=== PATIENT | female | born 1985 | race Caucasian/White ===

== ENCOUNTER 2016-09-16 17:28 | Emergency (ER) | payer OTHER ==
[2016-09-16 18:21] LABS: BASOPHIL 0.4 % (0-2); EOSINOPHIL 1.2 % (0-5); HCT 44.5 % (37.0-47.0); HGB 15.5 g/dl (12.5-16.0); LYMPHOCYTE 20.5 % (15-48); MCH 31.5 pg (25.0-31.0); MCHC 34.8 g/dL (32.0-36.0); MCV 90.4 fL (78.0-100.0); MONOCYTE 8.4 % (0-12); MPV 11.8 fL (6.0-9.5); NEUTROPHIL 69.5 % (41-80); PLT 212 K/uL (150-400); RBC 4.92 M/uL (4.20-5.40); RDW 12.6 % (11.5-14.0); WBC 8.1 K/uL (4.0-10.5)
[2016-09-16 18:38] LABS: CREATININE 0.7 mg/dL (0.5-1.0); POTASSIUM 4.1 mmol/L (3.5-5.1)
== END 2016-09-16 20:14 | disposition home or self-care (01) ==
LOC: FER 17:28
PROVIDERS: Emergency Medicine
DX: F41.1 Generalized anxiety disorder (principal); E06.3 Autoimmune thyroiditis; Z88.0 Allergy status to penicillin; Z79.899 Other long term (current) drug therapy
CPT/HCPCS: 36415; 80048; 84443; 85025; 93005

== ENCOUNTER 2020-07-29 14:52 | Inpatient (IN) | payer OTHER ==
[~2020-07-29 14:52] MED LIST: ONDANSETRON ODT4 MG PO
[2020-07-29 15:54] LABS: BASOPHIL 0.3 % (0-2); EOSINOPHIL 3.9 % (0-5); HCT 45.1 % (37.0-47.0); HGB 14.8 g/dl (12.5-16.0); LYMPHOCYTE 6.3 % (15-48); MCH 30.7 pg (25.0-31.0); MCHC 32.8 g/dL (32.0-36.0); MCV 93.6 fL (78.0-100.0); MONOCYTE 4.8 % (0-12); MPV 11.7 fL (6.0-9.5); NEUTROPHIL 84.3 % (41-80); NRBC 0; PLT 234 K/uL (150-400); RBC 4.82 M/uL (4.20-5.40); RDW 12.4 % (11.5-14.0); WBC 20.6 K/uL (4.0-10.5)
[2020-07-29 15:56] LABS: BILIRUBIN NEGATIVE (NEGATIVE); BLOOD NEGATIVE Ery/uL (NEGATIVE); CLARITY HAZY (CLEAR); COLOR YELLOW (YELLOW); GLUCOSE (U) NORMAL (NORMAL); LEUKOCYTES 2+ Leu/uL (NEGATIVE); NITRITE NEGATIVE (NEGATIVE); PROTEIN NEGATIVE (NEGATIVE); UROBILINOGEN 0.2 mg/dL (0.2-1.0); pH 5.5 (5.0-9.0)
[2020-07-29 16:08] LABS: ALBUMIN 3.7 g/dL (3.4-5.0); ALKALINE PHOSHATASE 87 U/L (46-116); ALT 28 U/L (14-59); AST 26 U/L (15-37); BILIRUBIN - TOTAL 0.5 mg/dL (0.2-1.0); BUN 11 mg/dL (7-18); BUN/CREAT RATIO (CALC) 21.6 RATIO; CHLORIDE 102 mmol/L (98-107); CO2 (BICARBONATE) 26 mmol/L (21-32); CREATININE 0.51 mg/dL (0.51-0.95); GLOBULIN (CALCULATION) 3.5 g/dL; GLUCOSE 110 mg/dL (74-106); LIPASE >2250 U/L (73-393); POTASSIUM 3.8 mmol/L (3.5-5.1); TOTAL PROTEIN 7.2 g/dL (6.4-8.2)
[2020-07-29 16:09] LABS: BACTERIA TRACE; SQUAMOUS EPITHELIAL CELLS 20-50
[2020-07-29 16:10] LABS: MUCOUS MODERATE
[2020-07-29 17:48] LABS: LACTIC ACID 0.7 mmol/L (0.4-1.9)
[2020-07-29 18:24] LABS: CHOLESTEROL 144 mg/dL (<200); HDL 40 mg/dL (40-60); LDL - DIRECT 96 mg/dL (<100); TRIGLYCERIDES 35 mg/dL (<150)
[2020-07-29] MEDS ORDERED: ARMOUR THYROID60 MG PO (18:29)
[2020-07-29] MEDS ORDERED: ATIVAN1 MG PO (18:29)
[2020-07-30 06:18] LABS: HCT 38.2 % (37.0-47.0); HGB 12.6 g/dl (12.5-16.0); MCH 30.6 pg (25.0-31.0); MCV 92.7 fL (78.0-100.0); MPV 12.1 fL (6.0-9.5); RBC 4.12 M/uL (4.20-5.40); RDW 12.6 % (11.5-14.0); WBC 10.8 K/uL (4.0-10.5)
[2020-07-30 06:27] LABS: ALBUMIN 2.7 g/dL (3.4-5.0); BILIRUBIN - DIRECT 0.1 mg/dL (0.00-0.20); BILIRUBIN - TOTAL 0.6 mg/dL (0.2-1.0); BUN/CREAT RATIO (CALC) 13.2 RATIO; CREATININE 0.53 mg/dL (0.51-0.95); GLOBULIN (CALCULATION) 2.7 g/dL; POTASSIUM 3.6 mmol/L (3.5-5.1); TOTAL PROTEIN 5.4 g/dL (6.4-8.2)
--- NOTE | 2020-07-30 10:37 | NUR ---
SPOKE WITH PATIENT, SHE LIVES WITH HER DAD, IS INDEPENDENT WITH ALL ADLS, INDEPENDENT WITH AMBULATION, SHE DOES NOT HAVE HH. PATIENT STATED THAT SHE DOES NOT HAVE POA OR LIVING WILL.
[2020-07-30] MEDS ORDERED: LEVAQUIN500 MG PO (15:15)
[2020-07-30] MEDS ORDERED: METRONIDAZOLE500 MG PO (15:15)
[2020-07-30] MEDS ORDERED: PROTONIX 40MG T40 MG PO (15:15)
[2020-07-30] MEDS ORDERED: CARAFATE1 GM PO (15:15)
[2020-09-08] MEDS ORDERED: VITAMIN D3100 GM PO (13:41)
[2020-09-08] MEDS ORDERED: VITAMIN C PO (13:41)
[2020-09-08] MEDS ORDERED: LIVER REFRESH PO (13:42)
[2020-09-08] MEDS ORDERED: [UNRECOGNIZED DRUG - OTHER] PO (13:42)
== END 2020-07-30 16:10 | disposition home or self-care (01) | DRG 439 ==
LOC: FER 14:52 → FMS 17:06
PROVIDERS: Emergency Medicine; ADMIT Hospitalist
DX: K85.90 Acute pancreatitis without necrosis or infection, unspecified (principal); A69.20 Lyme disease, unspecified; Z88.0 Allergy status to penicillin; K29.70 Gastritis, unspecified, without bleeding; Z20.822 Contact with and (suspected) exposure to COVID-19; E03.9 Hypothyroidism, unspecified
CPT/HCPCS: 36415; 76705; 80048; 80053; 80061; 80076; 81001; 83605; 83690; 85025; 87040; 87088; C9113; J1170; J1956; J2270; J2405; J7030; J7120; Q9967; U0002

== ENCOUNTER → 2020-09-14 | Day surgery (SDC) | payer OTHER ==
[~2020-09-14] MED LIST changes: +ARMOUR THYROID60 MG PO; +ATIVAN1 MG PO; +CARAFATE1 GM PO; +LEVAQUIN500 MG PO; +LIVER REFRESH PO; +METRONIDAZOLE500 MG PO; +PROTONIX 40MG T40 MG PO; +VITAMIN C PO; +VITAMIN D3100 GM PO; +[UNRECOGNIZED DRUG - OTHER] PO
[2020-09-14 08:02] LABS: HCG (URINE) SCREEN NEGATIVE (NEGATIVE)
== END | disposition home or self-care (01) ==
LOC: FAS 07:34
PROVIDERS: Anesthesiology
DX: K29.50 Unspecified chronic gastritis without bleeding (principal); K21.00 Gastro-esophageal reflux disease with esophagitis, without bleeding; K29.80 Duodenitis without bleeding; F41.9 Anxiety disorder, unspecified; F32.9 Major depressive disorder, single episode, unspecified; E16.2 Hypoglycemia, unspecified; Z87.11 Personal history of peptic ulcer disease; Z87.19 Personal history of other diseases of the digestive system; Z88.0 Allergy status to penicillin
CPT/HCPCS: 84703; J2250; J2704; J7120

== ENCOUNTER 2021-02-15 08:06 | Emergency (ER) | payer OTHER ==
[2021-02-15 08:49] LABS: BILIRUBIN NEGATIVE (NEGATIVE); BLOOD NEGATIVE Ery/uL (NEGATIVE); CLARITY CLEAR (CLEAR); COLOR YELLOW (YELLOW); GLUCOSE (U) NORMAL (NORMAL); LEUKOCYTES NEGATIVE Leu/uL (NEGATIVE); NITRITE NEGATIVE (NEGATIVE); PROTEIN NEGATIVE (NEGATIVE); SPECIFIC GRAVITY 1.015 (1.001-1.030); UROBILINOGEN 0.2 mg/dL (0.2-1.0); pH 5.5 (5.0-9.0)
[2021-02-15 08:51] LABS: ECSTASY (MDMA) NEGATIVE (NEGATIVE); MARIJUANA (THC) POSITIVE (NEGATIVE); METHADONE NEGATIVE (NEGATIVE)
[2021-02-15 08:52] LABS: AMPHETAMINES NEGATIVE (NEGATIVE); BARBITURATES NEGATIVE (NEGATIVE); OPIATES NEGATIVE (NEGATIVE); OXYCODONE NEGATIVE (NEGATIVE)
[2021-02-15 09:16] LABS: BASOPHIL 0.5 % (0-2); EOSINOPHIL 0.8 % (0-5); HCT 40.2 % (37.0-47.0); HGB 13.2 g/dl (12.5-16.0); MCH 30.8 pg (25.0-31.0); MCHC 32.8 g/dL (32.0-36.0); MCV 93.7 fL (78.0-100.0); MONOCYTE 4.8 % (0-12); MPV 11.3 fL (6.0-9.5); NEUTROPHIL 74.6 % (41-80); NRBC 0; PLT 233 K/uL (150-400); RBC 4.29 M/uL (4.20-5.40); RDW 13.7 % (11.5-14.0); WBC 13.8 K/uL (4.0-10.5)
[2021-02-15 09:43] LABS: BUN/CREAT RATIO (CALC) 35.3 RATIO; CREATININE 0.51 mg/dL (0.51-0.95); POTASSIUM 4.1 mmol/L (3.5-5.1)
[2021-02-15] MEDS ORDERED: METRONIDAZOLE500 MG PO (11:21)
[2021-02-16 22:07] LABS: CHLAMYDIA TRACHOMATIS, NAA Negative (Negative); NEISSERIA GONORRHOEAE, NAA Negative (Negative)
== END 2021-02-15 11:49 | disposition home or self-care (01) ==
LOC: FER 08:06
PROVIDERS: Emergency Medicine
DX: R33.9 Retention of urine, unspecified (principal); N76.0 Acute vaginitis; Z88.0 Allergy status to penicillin
CPT/HCPCS: 36415; 80048; 80305; 81003; 84443; 85025; 87210; 87491; 87591